=== PATIENT | male | born 1985 | race African-American/Black ===

== ENCOUNTER 2017-02-06 13:58 | Emergency (ER) | payer SELFPAY ==
--- NOTE | 2017-02-06 15:16 | ER Document Report ---
ED ENT - General Chief Complaint: Eye Pain Stated Complaint: EYE/FACE PAIN Time Seen by Provider: 02/06/17 14:58 Mode of Arrival: Ambulatory Information source: Patient Notes: 28-year-old male presents to ED for complaint of pain to the right side of the face states she has swelling to the right side of his face around his eyes and around his mouth. Started last Monday. States he asked her swelling 2 or 3 days ago. No swelling to the face eye or mouth at that time. States the main most of the pain is around the pentecostalism area. Complaint of pain to the top of the head and the temporal and side of his face at this time but no swelling redness or anything else noted. TRAVEL OUTSIDE OF THE [place] IN LAST 30 DAYS: No - HPI Patient complains to provider of: Other - Pain and swelling to the right side of his face and head Onset: Other - Patient states pain started last Monday or Monday but the facial swelling started Monday and the swelling around the eyes started 2-3 days ago. Onset/Duration: Gradual Quality of pain: Achy, Other - Popping and burning Severity: Severe Pain Level: 5 Location of pain: Face, Sinus, Other Associated symptoms: Face swelling - Intermittently, Other - She has had eye swelling intermittently in the mouth numbness and tingling intermittently facial swelling intermittently Similar symptoms previously: Yes - For the last week Recently seen / treated by doctor: No - Related Data Allergies/Adverse Reactions: No Known Allergies Allergy (Verified 02/06/17 14:06) Past Medical History - General Information source: Patient - Social History Smoking Status: Current Every Day Smoker Cigarette use (# per day): Yes - One half pack a day Chew tobacco use (# tins/day): No Smoking Education Provided: Yes - Less than 2 minutes Frequency of alcohol use: Occasional Drug Abuse: Marijuana Occupation: Construction Lives with: Friend Family History: DM. denies: Arthritis, CAD, COPD, CVA, Hyperlipidemia, Hypertension, Malignancy, Thyroid Disfunction Patient has suicidal ideation: No Patient has homicidal ideation: No - Past Medical History Cardiac Medical History: Reports: None Pulmonary Medical History: Reports: Hx Asthma Denies: Hx Tuberculosis EENT Medical History: Reports: None Neurological Medical History: Reports: None Endocrine Medical History: Reports: None Renal/ Medical History: Reports: None Malignancy Medical History: Reports None GI Medical History: Reports: None Musculoskeltal Medical History: Reports None Skin Medical History: Reports None Psychiatric Medical History: Reports: None Traumatic Medical History: Reports: Hx Fractures - Fingers and thumb Infectious Medical History: Reports: None Past Surgical History: Reports: Hx Appendectomy - Immunizations Immunizations up to date: Yes Hx Diphtheria, Pertussis, Tetanus Vaccination: Yes Review of Systems - Review of Systems Constitutional: No symptoms reported EENT: Eye pain - Wound the eye, not in his eye, Sinus pressure, Other - Facial pain Cardiovascular: No symptoms reported Respiratory: No symptoms reported Gastrointestinal: No symptoms reported Genitourinary: No symptoms reported Male Genitourinary: No symptoms reported Musculoskeletal: No symptoms reported Skin: No symptoms reported Hematologic/Lymphatic: No symptoms reported Neurological/Psychological: No symptoms reported Physical Exam - Vital signs Vitals: Temp Pulse Resp BP Pulse Ox 98.1 F 81 16 135/79 H 100 02/06/17 14:06 02/06/17 14:06 02/06/17 14:06 02/06/17 14:06 02/06/17 14:06 Interpretation: Normal - General General appearance: Appears well, Alert - HEENT Head: Normocephalic, Atraumatic Eyes: Normal. No: Periorbital edema Pupils: PERRL Ears: Normal External canal: Normal Tympanic membrane: Normal Sinus: Normal Nasal: Swelling, Clear rhinorrhea Mouth/Lips: Normal Mucous membranes: Normal - Respiratory Respiratory status: No respiratory distress Chest status: Nontender Breath sounds: Normal Chest palpation: Normal - Cardiovascular Rhythm: Regular Heart sounds: Normal auscultation Murmur: No - Abdominal Inspection: Normal Distension: No distension Bowel sounds: Normal Tenderness: Nontender Organomegaly: No organomegaly - Back Back: Normal, Nontender - Extremities General upper extremity: Normal inspection, Nontender, Normal color, Normal ROM , Normal temperature General lower extremity: Normal inspection, Nontender, Normal color, Normal ROM , Normal temperature, Normal weight bearing. No: Zafar's sign - Neurological Neuro grossly intact: Yes Cognition: Normal Orientation: AAOx4 [place] Coma Scale Eye Opening: Spontaneous Eveline Coma Scale Verbal: Oriented [place] Coma Scale Motor: Obeys Commands Eveline Coma Scale Total: 15 Speech: Normal Motor strength normal: LUE, RUE, LLE, RLE Sensory: Normal - Psychological Associated symptoms: Normal affect, Normal mood - Skin Skin Temperature: Warm Skin Moisture: Dry Skin Color: Normal Course - Re-evaluation Re-evalutation: 02/06/17 17:[address] Wharton. Had him come over and assessed the patient. He recommended getting a CAT scan of the head and of the CAT scan was negative he can be discharged home with some medication for discomfort to include anti-inflammatories and Ultram. His CT of the head was negative he was discharged home with a prescription for Ultram and recommended ibuprofen which he stated he would get [id number]. - Vital Signs Vital signs: Temp Pulse Resp BP Pulse Ox 97.8 F 54 L 16 136/85 H 100 02/06/17 17:24 02/06/17 17:24 02/06/17 15:00 02/06/17 17:24 02/06/17 17:24 - Diagnostic Test Radiology reviewed: Image reviewed, Reports reviewed Discharge - Discharge Clinical Impression: Facial pain, Pain, eye, right Headache Qualifiers: Headache type: unspecified Headache chronicity pattern: unspecified pattern Intractability: not intractable Qualified Code(s): R51 - Headache Condition: Stable Disposition: HOME, SELF-CARE Instructions: Family Physicians / Practices Additional Instructions: You should stay you have no pain at this time but you have pain every night when he laid down to go to sleep on the right side of the head and face as well as her right eye. CT of the head was negative. Assessment is consistent with an upper respiratory infection with no signs or symptoms of an infection to the right eye. You have no signs or symptoms of an infection to the right ear. You have been instructed to follow-up with a neurologist for your pain in your head face and eye Anti-Inflammatory Medication You have received a recommendation to use antiinflammatory agent such as ibuprofen. This is an excellent, safe drug for pain control. In addition, it has potent antiinflammatory effects which are beneficial, especially in the treatment of injuries, arthritis, or tendonitis. It's best to take this medicine with food. Persons with ulcer disease or allergy to aspirin should notify their physician of this before taking this drug. Take the medication exactly as prescribed. Don't take additional doses unless instructed to do so by your doctor. If you develop wheezing, shortness of breath, hives, faintness, stomach pain, vomiting, or dark black stools, return for re-evaluation at once. Ultram Ultram is an excellent drug for pain relief. It is not a narcotic, but it works in a similar way. Ultram can take up to two hours for full effect. Although not addicting, Ultram is best avoided in patients with a history of drug abuse. Ultram should not be used with alcohol, sleeping pills, or narcotics. If you're prone to seizures, Ultram can make you more likely to have a seizure. Ultram can be hazardous when combined with MAO-inhibitor antidepressants (such as Nardil or Parnate). Be sure your doctor is aware of all medicines you are taking. Persons with severe liver or kidney disease should increase the time between doses of Ultram. Discuss this with your doctor if you're uncertain. Side effects of Ultram can include dizziness, nausea, constipation, sleepiness, and itching. (These side effects are also seen with narcotic pain medicines.) Please call your doctor if you have other disturbing effects. FOLLOW-UP CARE: If you have been referred to a physician for follow-up care, call the physician s office for an appointment as you were instructed or within the next two days. If you experience worsening or a significant change in your symptoms, notify the physician immediately or return to the Emergency Department at any time for re-evaluation. Prescriptions: Tramadol HCl [Ultram] 50 mg PO BIDP PRN #14 tablet PRN Reason: Forms: Elevated Blood Pressure, Smoking Cessation Education, Return to Work Referrals: ALLY ALBERTO MD [ACTIVE STAFF] - Follow up as needed
--- NOTE | 2017-02-06 16:14 | RADIOLOGY REPORT (SQ) ---
EXAM DESCRIPTION: CT HEAD WITHOUT COMPLETED DATE/TIME: 02/06/2017 3:59 pm REASON FOR STUDY: right facial pain COMPARISON: None. TECHNIQUE: Axial images acquired through the brain without intravenous contrast. Images reviewed wi th bone, brain and subdural windows. Images stored on PACS. All CT scanners at this facility use dose modulation, iterative reconstruction, and/or weight based d osing when appropriate to reduce radiation dose to as low as reasonably achievable (ALARA). [facility]: Dose Right [facility]: CareDose [facility]: Dose Right [facility]: Teradose 4D [facility]: CorNova RADIATION DOSE: 64.61 mGy. LIMITATIONS: None. FINDINGS: VENTRICLES: Normal size and contour. CEREBRUM: No masses. No hemorrhage. No midline shift. Normal joseph/white matter differentiation. N o evidence for acute infarction. CEREBELLUM: No masses. No hemorrhage. No alteration of density. No evidence for acute infarction. EXTRAAXIAL SPACES: No fluid collections. No masses. ORBITS AND GLOBE: No intra- or extraconal masses. Normal contour of globe without masses. CALVARIUM: No fracture. PARANASAL SINUSES: No fluid or mucosal thickening. SOFT TISSUES: No mass or hematoma. OTHER: No other significant finding. IMPRESSION: NORMAL BRAIN CT WITHOUT CONTRAST. TECHNICAL DOCUMENTATION: JOB ID: [id number] Quality ID # [id number]: Final reports with documentation of one or more dose reduction techniques (e.g., Au tomated exposure control, adjustment of the mA and/or kV according to patient size, use of iterative reconstruction technique) 2010 [employer]- All Rights Reserved
[2017-02-06 17:26] VITALS: BP 136/85
== END 2017-02-06 17:28 | disposition home or self-care (01) ==
LOC: ER 13:58
DX: R51 Headache (principal); H57.11 Ocular pain, right eye; R20.0 Anesthesia of skin; R20.2 Paresthesia of skin; R22.0 Localized swelling, mass and lump, head; J34.89 Other specified disorders of nose and nasal sinuses; J45.909 Unspecified asthma, uncomplicated; F17.210 Nicotine dependence, cigarettes, uncomplicated; Z71.6 Tobacco abuse counseling
CPT/HCPCS: 70450; 99283

== ENCOUNTER 2017-10-03 09:04 | Emergency (ER) | payer SELFPAY ==
[2017-10-03] MEDS ORDERED: HYDROCODONE/ACETAMINOPHEN 5-325 MG TABLET PO ONE (10:20)
--- NOTE | 2017-10-03 10:21 | ER Document Report ---
HPI - HPI Patient complains to provider of: Leg pain Onset: Yesterday Onset/Duration: Persistent Quality of pain: Achy Pain Level: 3 Context: Patient states he was playing basketball yesterday and whenever he landed he came down wrong on his right leg. Patient complains of right knee pain and pain from right hip area that radiates down his leg. Patient denies any fall. Patient does state that his knee will occasionally give out on him. Patient complains of increased knee pain with extension of the joint. Associated Symptoms: Other - Right knee, right leg pain. denies: Fever Exacerbated by: Standing, Movement, Walking Relieved by: Denies Similar symptoms previously: No Recently seen / treated by doctor: No - ROS ROS below otherwise negative: Yes Systems Reviewed and Negative: Yes All other systems reviewed and negative - CONSTITUTIONAL Constitutional: DENIES: Fever, Chills - NEURO Neurology: DENIES: Weakness - GASTROINTESTINAL Gastrointestinal: DENIES: Nausea, Patient vomiting - URINARY Urinary: DENIES: Dysuria - REPRODUCTIVE Reproductive: DENIES: : - MUSCULOSKELETAL Musculoskeletal: REPORTS: Extremity pain - DERM Skin Color: Normal Skin Problems: None Past Medical History - General Information source: Patient - Social History Smoking Status: Current Every Day Smoker Smoking Education Provided: Yes Frequency of alcohol use: Occasional Drug Abuse: None Occupation: Construction Family History: DM. denies: Arthritis, CAD, COPD, CVA, Hyperlipidemia, Hypertension, Malignancy, Thyroid Disfunction Patient has suicidal ideation: No Patient has homicidal ideation: No Pulmonary Medical History: Reports: Hx Asthma Denies: Hx Tuberculosis Renal/ Medical History: Denies: Hx Peritoneal Dialysis Traumatic Medical History: Reports: Hx Fractures - Fingers and thumb Past Surgical History: Reports: Hx Appendectomy - Immunizations Immunizations up to date: Yes Hx Diphtheria, Pertussis, Tetanus Vaccination: Yes Vertical Provider Document - CONSTITUTIONAL Agree With Documented VS: Yes Exam Limitations: No Limitations General Appearance: WD/WN, No Apparent Distress - INFECTION CONTROL TRAVEL OUTSIDE OF THE [place] IN LAST 30 DAYS: No - HEENT HEENT: Atraumatic, Normocephalic - NECK Neck: Normal Inspection - RESPIRATORY Respiratory: Breath Sounds Normal, No Respiratory Distress O2 Sat by Pulse Oximetry: 99 - CARDIOVASCULAR Cardiovascular: Regular Rate, Regular Rhythm Pulses: Normal: Dorsalis pedis - BACK Back: Abnormal Inspection - Right SI joint tenderness, no lumbar midline tenderness, step-off or deformity. negative: CVA Tenderness-Right, CVA Tenderness-Left - MUSCULOSKELETAL/EXTREMETIES Musculoskeletal/Extremeties: MAEW, Tender - Right knee joint tenderness, no laxity with varus or valgus maneuvers, patellar tendon intact. Tenderness increases with full extension, No Edema. negative: Eccymosis - NEURO Level of Consciousness: Awake, Alert, Appropriate Motor/Sensory: No Motor Deficit Notes: No saddle anesthesia, negative straight leg test, no footdrop - DERM Integumentary: Warm, Dry, No Rash Course - Re-evaluation Re-evalutation: 10/03/17 11:51 The patient has been informed that they may have pre-hypertension or hypertension based on a blood pressure reading in the emergency department. I recommend that patient call the primary care provider listed on their discharge instructions or a physician of their choice by this week to arrange follow-up for further evaluation of possible pre-hypertension or hypertension. Controlled substance database reviewed Smoking cessation handout provided to patient Patient with no obvious fracture on x-ray, we will plan to immobilize knee and have patient weightbearing as tolerated. The patient presents with low back pain without signs of spinal cord compression, cauda equina syndrome, infection , aneurysm, or other serious etiology. The patient is neurologically intact. Given the extremely risk of these diagnoses further testing and evaluation for these possibilities does not appear to be indicated at this time. Patient has been instructed to return if the symptoms worsen or change in any way. - Vital Signs Vital signs: Temp Pulse Resp BP Pulse Ox 98.4 F 78 20 160/94 H 99 10/03/17 09:16 10/03/17 09:16 10/03/17 09:16 10/03/17 09:16 10/03/17 09:16 - Diagnostic Test Radiology reviewed: Image reviewed, Reports reviewed Procedures - Immobilization Right Knee Pre-Proc Neuro Vasc Exam: Normal Immobilizer type: Bob wrap Performed by: RN Post-Proc Neuro Vasc Exam: Normal Alignment checked and good: Yes Discharge - Discharge Clinical Impression: Elevated blood pressure reading Sprain, knee Qualifiers: Encounter type: initial encounter Involved ligament of knee: unspecified ligament Laterality: right Qualified Code(s): S83.91XA - Sprain of unspecified site of right knee, initial encounter Sciatica Qualifiers: Laterality: right Qualified Code(s): M54.31 - Sciatica, right side Condition: Stable Disposition: HOME, SELF-CARE Instructions: Use of Crutches ([facility]), Ice & Elevation ([facility]), Oral Narcotic Medication ([facility]), Sciatica ([facility]), Sprained Knee ([facility]) Additional Instructions: Return immediately for any new or worsening symptoms Followup with your primary care provider, call tomorrow to make a followup appointment Follow-up with orthopedic doctor, call tomorrow for an appointment Weightbearing as tolerated Prescriptions: Hydrocodone/Acetaminophen [[place] 5-325 Tablet] 1 each PO Q4 PRN #15 tablet PRN Reason: Naproxen [Naprosyn 250 Nmg Tablet] 1 tab PO BID #14 tablet Forms: Elevated Blood Pressure, Smoking Cessation Education, Return to Work Referrals: [facility] [Provider Group] - Follow up as needed [facility] [Provider Group] - Follow up as needed
--- NOTE | 2017-10-03 11:43 | RADIOLOGY REPORT (SQ) ---
EXAM DESCRIPTION: KNEE RIGHT 4 VIEWS COMPLETED DATE/TIME: 10/03/2017 11:04 am REASON FOR STUDY: r knee pain, injured during basketball COMPARISON: None. NUMBER OF VIEWS: Four views. TECHNIQUE: AP, lateral, and both oblique radiographic images acquired of the right knee. LIMITATIONS: None. FINDINGS: MINERALIZATION: Normal. BONES: No acute fracture or dislocation. No worrisome bone lesions. JOINT: No effusion. SOFT TISSUES: No soft tissue swelling. No radio-opaque foreign body. OTHER: No other significant finding. IMPRESSION: NEGATIVE STUDY OF THE RIGHT KNEE. NO RADIOGRAPHIC EVIDENCE OF ACUTE INJURY. TECHNICAL DOCUMENTATION: JOB ID: [id number] SC-69 2010 [employer]- All Rights Reserved
[2017-10-03 12:02] VITALS: BP 155/90
== END 2017-10-03 12:02 | disposition home or self-care (01) ==
LOC: ER 09:04
DX: S83.91XA Sprain of unspecified site of right knee, initial encounter (principal); M54.31 Sciatica, right side; R03.0 Elevated blood-pressure reading, without diagnosis of hypertension; M79.604 Pain in right leg; M25.561 Pain in right knee; M25.551 Pain in right hip; F17.200 Nicotine dependence, unspecified, uncomplicated; X58.XXXA Exposure to other specified factors, initial encounter
CPT/HCPCS: 99283

== ENCOUNTER 2019-02-23 09:43 | Emergency (ER) | payer OTHER ==
[2019-02-23] MEDS ORDERED: DIPH/PERTUSS(ACELL)/TETANUS VAC/PF 0.5 ML SYR (>=10YO) IM ONE (10:15)
[2019-02-23] MEDS ORDERED: CEPHALEXIN 500 MG CAPSULE PO ONE (10:15)
--- NOTE | 2019-02-23 10:19 | ER Document Report ---
HPI - HPI Time Seen by Provider: 02/23/19 10:08 Pain Level: 3 Notes: Patient is a 33-year-old male presenting to the emergency department with laceration to his right index finger just past the DIP. Patient reports he was cutting with a jigsaw yesterday at approximately 2 PM when this occurred. It has been approximately 20 hours since the laceration occurred. Patient has full range of motion, denies any loss of sensation. Patient unsure when last tetanus shot was but he believes it was a long time ago. - REPRODUCTIVE Reproductive: DENIES: : - DERM Skin Color: Normal, [place] Past Medical History - General Information source: Patient - Social History Smoking Status: Current Every Day Smoker Frequency of alcohol use: None Drug Abuse: Marijuana Family History: DM. denies: Arthritis, CAD, COPD, CVA, Hyperlipidemia, Hypertension, Malignancy, Thyroid Disfunction Patient has suicidal ideation: No Patient has homicidal ideation: No Pulmonary Medical History: Reports: Hx Asthma Denies: Hx Tuberculosis Renal/ Medical History: Denies: Hx Peritoneal Dialysis Traumatic Medical History: Reports: Hx Fractures - Fingers and thumb Past Surgical History: Reports: Hx Appendectomy - Immunizations Immunizations up to date: Yes Hx Diphtheria, Pertussis, Tetanus Vaccination: Yes Vertical Provider Document - CONSTITUTIONAL Notes: PHYSICAL EXAMINATION: GENERAL: Well-appearing, well-nourished and in no acute distress. HEAD: Atraumatic, normocephalic. EYES: Pupils equal round extraocular movements intact, conjunctiva are normal. ENT: Nares patent NECK: Normal range of motion LUNGS: No respiratory distress Musculoskeletal: Normal range of motion NEUROLOGICAL: Normal speech, normal gait. PSYCH: Normal mood, normal affect. SKIN: 1 cm linear laceration noted to right index finger just past the DIP on the plantar surface, well approximated, already closed, no active bleeding noted. - INFECTION CONTROL TRAVEL OUTSIDE OF THE [place] IN LAST 30 DAYS: No Course - Re-evaluation Re-evalutation: Wound appears well, well approximated. X-rays negative for any retained foreign body. Patient will be discharged home on antibiotics. - Vital Signs Vital signs: Temp Pulse Resp BP Pulse Ox 98.2 F 84 18 151/96 H 94 02/23/19 09:51 02/23/19 09:51 02/23/19 09:51 02/23/19 09:51 02/23/19 09:51 Discharge - Discharge Clinical Impression: Laceration of right index finger Qualifiers: Encounter type: initial encounter Damage to nail status: without damage Foreign body presence: without foreign body Qualified Code(s): S61.210A - Laceration without foreign body of right index finger without damage to nail, initial encounter Condition: Stable Disposition: HOME, SELF-CARE Additional Instructions: Unfortunately the wound is unable to be sutured since 20 hours has elapsed between the time of the laceration and the time that you came to the emergency department. Luckily it appears to be healing up on its own and is already closed. Please take the antibiotics as prescribed, finish the entire course of antibiotics even if you do not develop any symptoms. The x-ray does not show any retained foreign body in the wound. Your tetanus shot was also updated today. Keep a clean dressing on the area at all times, apply a thin layer of bacitracin or triple antibiotic ointment to the area twice daily and again make sure that you are changing the dressing at least twice daily. Return to the emergency department with any new or worsening symptoms to include fever, redness, swelling, foul-smelling drainage or red streaking from the area. Prescriptions: Cephalexin [Cephalexin 500 MG Tablet] 1 tab PO QID #20 tablet Forms: Return to Work
--- NOTE | 2019-02-23 11:13 | RADIOLOGY REPORT (SQ) ---
EXAM DESCRIPTION: FINGER RIGHT COMPLETED DATE/TIME: 02/23/2019 10:45 am REASON FOR STUDY: right index finger lac, eval for fracture vs FB COMPARISON: None. NUMBER OF VIEWS: Three views. TECHNIQUE: AP, lateral, and oblique images acquired of the right second finger. LIMITATIONS: None. FINDINGS: MINERALIZATION: Normal. BONES: No acute fracture or dislocation. No worrisome bone lesions. SOFT TISSUES: No soft tissue swelling. No foreign body. OTHER: No other significant finding. IMPRESSION: NO RADIOGRAPHIC EVIDENCE OF ACUTE INJURY. COMMENT: SITE OF TRAUMA/COMPLAINT MARKED/STAMP COMPLETED: No TECHNICAL DOCUMENTATION: JOB ID: [id number] [employer]- All Rights Reserved Reading location - IP/workstation name: [email or web address]
[2019-02-23 11:38] VITALS: BP 142/91
== END 2019-02-23 11:38 | disposition home or self-care (01) ==
LOC: ER 09:43
DX: S61.210A Laceration without foreign body of right index finger without damage to nail, initial encounter (principal); F17.200 Nicotine dependence, unspecified, uncomplicated; W29.8XXA Contact with other powered hand tools and household machinery, initial encounter; Y99.0 Civilian activity done for income or pay
CPT/HCPCS: 90471; 90715; 99283

== ENCOUNTER 2019-12-17 08:53 | Emergency (ER) | payer SELFPAY ==
[2019-12-17 09:26] VITALS: BP 143/98
--- NOTE | 2019-12-17 09:30 | RADIOLOGY REPORT (SQ) ---
EXAM DESCRIPTION: HAND RIGHT 3 VIEWS IMAGES COMPLETED DATE/TIME: 12/17/2019 9:15 am REASON FOR STUDY: pain, swelling COMPARISON: None. EXAM PARAMETERS: NUMBER OF VIEWS: Three views. TECHNIQUE: AP, lateral and oblique radiographic images acquired of the right hand. LIMITATIONS: None. FINDINGS: MINERALIZATION: Normal. BONES: No acute fracture or dislocation. There is a small subchondral cysts at the base of the 1st m etacarpal. Some prominent trabeculations in distal 1st metacarpal with subtle lucency consistent wit h benign process possibly septated cyst. JOINTS: No effusions. SOFT TISSUES: No soft tissue swelling. No foreign body. OTHER: No other significant finding. IMPRESSION: No acute findings. TECHNICAL DOCUMENTATION: JOB ID: [id number] 2010 [employer]- All Rights Reserved Reading location - IP/workstation name: [email or web address]
[2019-12-17] MEDS ORDERED: SULFAMETHOXAZOLE/TRIMETHOPRIM 800-160 MG TABLET PO ONE (09:31)
--- NOTE | 2019-12-17 09:34 | ER Document Report ---
HPI - HPI Time Seen by Provider: 12/17/19 09:12 Pain Level: 1 Context: Patient is a 34-year-old male presents emergency department with a chief complaint of right hand pain. He states that he was at a junk yard the other day and feels like he got bit by a spider. Patient works with his hands, as he works in construction. Patient is right-handed. Denies any fever, body aches, or chills. He denies any injury. - CONSTITUTIONAL Constitutional: DENIES: Fever, Chills - EENT EENT: DENIES: Sore Throat, Ear Pain - NEURO Neurology: DENIES: Headache, Weakness - RESPIRATORY Respiratory: DENIES: Trouble Breathing, Coughing - GASTROINTESTINAL Gastrointestinal: DENIES: Abdominal Pain, Nausea - REPRODUCTIVE Reproductive: DENIES: : - MUSCULOSKELETAL Musculoskeletal: REPORTS: Extremity pain - DERM Skin Color: Normal Skin Problems: None - SEE HPI Past Medical History - Social History Smoking Status: Never Smoker Chew tobacco use (# tins/day): No Frequency of alcohol use: None Drug Abuse: Marijuana Family History: DM. denies: Arthritis, CAD, COPD, CVA, Hyperlipidemia, Hypertension, Malignancy, Thyroid Disfunction Patient has suicidal ideation: No Patient has homicidal ideation: No Pulmonary Medical History: Reports: Hx Asthma Denies: Hx Tuberculosis Renal/ Medical History: Denies: Hx Peritoneal Dialysis Traumatic Medical History: Reports: Hx Fractures - Fingers and thumb Past Surgical History: Reports: Hx Appendectomy - Immunizations Immunizations up to date: Yes Hx Diphtheria, Pertussis, Tetanus Vaccination: Yes Vertical Provider Document - CONSTITUTIONAL Agree With Documented VS: Yes Exam Limitations: No Limitations General Appearance: No Apparent Distress - INFECTION CONTROL TRAVEL OUTSIDE OF THE [place] IN LAST 30 DAYS: No - HEENT HEENT: Atraumatic, Normocephalic, PERRLA - NECK Neck: Normal Inspection - RESPIRATORY Respiratory: No Respiratory Distress - CARDIOVASCULAR Cardiovascular: Regular Rate, Regular Rhythm Pulses: Normal: Radial - MUSCULOSKELETAL/EXTREMETIES Musculoskeletal/Extremeties: FROM, Tender - mildly tender to right hand, No Edema. negative: Eccymosis - NEURO Level of Consciousness: Awake, Alert, Appropriate Motor/Sensory: No Motor Deficit, No Sensory Deficit - DERM Integumentary: Warm, Dry, No Rash Course - Re-evaluation Re-evalutation: 04/14/20 09:37 Patient's physical exam did not show in any area of fluctuance. Based off patient's symptoms, will place the patient on Bactrim. I have very low suspicion for necrotizing fasciitis. Follow-up precautions were given. Verbal discharge instructions were given to the patient. They verbalized unders tanding. They are stable for discharge. - Vital Signs Vital signs: Temp Pulse Resp BP Pulse Ox 98.4 F 89 143/98 H 100 12/17/19 08:59 12/17/19 08:59 12/17/19 08:59 12/17/19 08:59 Discharge - Discharge Clinical Impression: Right hand pain Bug bite of face with infection Qualifiers: Encounter type: initial encounter Qualified Code(s): S00.86XA - Insect bite (nonvenomous) of other part of head, initial encounter Condition: Stable Disposition: HOME, SELF-CARE Additional Instructions: You are seen today in the emergency department for right hand pain. You have an infection in the area. Please take your antibiotics as prescribed. If your symptoms are not better in the next 3 to 4 days, return to the emergency department. Prescriptions: Sulfamethoxazole/Trimethoprim [Bactrim Ds Tablet] 1 each PO BID 7 Days #14 tablet Referrals: [facility] [Provider Group] - Follow up as needed [facility] [Provider Group] - Follow up as needed
== END 2019-12-17 09:51 | disposition home or self-care (01) ==
LOC: ER 08:53
DX: S00.86XA Insect bite (nonvenomous) of other part of head, initial encounter (principal); M79.641 Pain in right hand; W57.XXXA Bitten or stung by nonvenomous insect and other nonvenomous arthropods, initial encounter
CPT/HCPCS: 99283

== ENCOUNTER 2020-02-03 09:15 | Emergency (ER) | payer SELFPAY ==
--- NOTE | 2020-02-03 11:18 | RADIOLOGY REPORT (SQ) ---
EXAM DESCRIPTION: L SPINE WHOLE IMAGES COMPLETED DATE/TIME: 02/03/2020 11:06 am REASON FOR STUDY: Lumbar sacral back pain COMPARISON: None. NUMBER OF VIEWS: Five views including obliques. TECHNIQUE: AP, lateral, oblique, and sacral radiographic images acquired of the lumbar spine. LIMITATIONS: None. FINDINGS: MINERALIZATION: Normal. SEGMENTATION: Probable transitional L5 segment. ALIGNMENT: No scoliotic curvature or spondylolisthesis VERTEBRAE: The lumbar vertebral body heights are preserved. There is no fracture. DISCS: The intervertebral disc spaces are preserved. There is no endplate irregularity or osteophyte formation POSTERIOR ELEMENTS: Intact. There is no pars interarticularis defect. HARDWARE: None in the spine. PARASPINAL SOFT TISSUES: Normal. PELVIS: Intact. OTHER: No other finding. IMPRESSION: No acute fracture or malalignment of the lumbar spine. TECHNICAL DOCUMENTATION: JOB ID: [id number] 2010 [employer]- All Rights Reserved Reading location - IP/workstation name: [email or web address]
--- NOTE | 2020-02-03 11:26 | ER Document Report ---
Entered by JUVENTINO SAPP SCRIBE 02/03/20 1048 Acting as scribe for:AC COOK MD ED Neck/Back Problem - General Chief Complaint: Back Pain Stated Complaint: LOW BACK PAIN Time Seen by Provider: 02/03/20 10:38 Mode of Arrival: Ambulatory Information source: Patient Notes: This 34 year old male patient presents to the emergency department today with complaints of low back pain for the last few days. Patient states he woke up with the pain 3 mornings ago. 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 Patient states his pain is exacerbated with bending and squatting and relieved if pressure is put on the area. TRAVEL OUTSIDE OF THE [place] IN LAST 30 DAYS: No - Related Data Allergies/Adverse Reactions: No Known Allergies Allergy (Verified 02/23/19 09:48) Past Medical History - General Information source: Patient - Social History Smoking Status: Current Every Day Smoker Cigarette use (# per day): Yes - 1/3 Frequency of alcohol use: None Drug Abuse: None Occupation: construction Lives with: Family Family History: DM Patient has homicidal ideation: No Pulmonary Medical History: Reports: Hx Asthma Traumatic Medical History: Reports: Hx Fractures - Fingers and thumb Past Surgical History: Reports: Hx Appendectomy - Immunizations Immunizations up to date: Yes Hx Diphtheria, Pertussis, Tetanus Vaccination: Yes Review of Systems - Review of Systems Constitutional: No symptoms reported EENT: No symptoms reported Cardiovascular: No symptoms reported Respiratory: No symptoms reported Gastrointestinal: No symptoms reported Genitourinary: No symptoms reported Male Genitourinary: No symptoms reported Musculoskeletal: See HPI, Back pain Skin: No symptoms reported Hematologic/Lymphatic: No symptoms reported Neurological/Psychological: No symptoms reported -: Yes All other systems reviewed and negative Physical Exam - Vital signs Vitals: Temp Pulse BP Pulse Ox 98.6 F 102 H 156/87 H 97 02/03/20 09:24 02/03/20 09:24 02/03/20 09:24 02/03/20 09:24 - General General appearance: Appears well, Alert In distress: None - HEENT Head: Normocephalic, Atraumatic Eyes: Normal Conjunctiva: Normal - Respiratory Respiratory status: No respiratory distress - Cardiovascular Rhythm: Regular - Abdominal Inspection: Normal Distension: No distension - Back Back: Tender - mild over the spinous processes bilaterally. increased tenderness over the lower paravertebral lumbar muscles and upper paravertebral sacral muscles. - Extremities General upper extremity: Normal inspection, Nontender, Normal ROM General lower extremity: Normal inspection, Nontender, Normal ROM - Neurological Neuro grossly intact: Yes Cognition: Normal Orientation: AAOx4 - Psychological Associated symptoms: Normal affect, Normal mood - Skin Skin Temperature: Warm Skin Moisture: Dry Skin Color: Normal Course - Vital Signs Vital signs: Temp Pulse Resp BP Pulse Ox 98.6 F 102 H 156/87 H 97 02/03/20 09:31 02/03/20 09:24 02/03/20 09:24 02/03/20 09:24 - Diagnostic Test Radiology reviewed: Image reviewed, Reports reviewed - Lumbar sacral spine x- rays did not show acute abnormalities. Discharge - Discharge Clinical Impression: Acute lumbar back pain Qualifiers: Back pain laterality: midline Sciatica presence: without sciatica Qualified Code(s): M54.5 - Low back pain Condition: Stable Disposition: HOME, SELF-CARE Additional Instructions: Low Back Pain Three out of every four people will have an episode of disabling back pain during their lifetime. Most commonly the pain is due to straining of the muscles and ligaments in the low back. Usual treatment includes: (1) Rest on a firm surface. Avoid lying on your stomach. (2) Ice pack the painful area. After a few days, gentle heat may be used intermittently to relax the area, or ice packs can be continued. (3) Medication may be needed -- muscle relaxers and antiinflammatory medicines are commonly used. (4) As the back improves, exercises are prescribed to strengthen the back and abdominal muscles. Your doctor will advise you on the proper care for your back at each stage in your recovery. You may be better in a few days -- or healing may take several weeks. If new symptoms of a "herniated disc" (radiation of pain, numbness, or tingling down the back of the leg or weakness in the leg) occur, you should be re-examined. Further testing may be necessary. High Blood Pressure When your blood pressure was taken today it was elevated. Today's reading was 156/87. Pre-hypertension/Hypertension: The patient has been informed that they may have pre-hypertension or Hypertension based on a blood pressure reading in the emergency department. I recommend that the patient call the primary care provider listed on their discharge instructions or a physician of their choice this week to arrange follow up for further evaluation of possible pre- hypertension or Hypertension. Sometimes, stress or illness causes a temporary elevation of your blood pressure. We suggest that you get your blood pressure measured three more times during the next few days to see if this is more than a temporary abnormality. If your blood pressure is greater than 150/90 on each occasion, you must have treatment. Some simple things you can do to help are: If you have blood pressure medicine but aren't using it regularly, start taking it again. Get some aerobic exercise for at least 20 minutes on a daily basis. (See your doctor before beginning a new exercise program.) Eat a low-fat diet. Lose excess weight. Avoid salty foods and avoid adding salt to any of the foods you eat. Avoid diet pills, decongestants, "energizing" herbs, and other medicines that elevate blood pressure. If left untreated, hypertension greatly enhances your risk for developing heart disease and strokes. Please don't ignore this problem. Take the Flexeril muscle relaxer as prescribed. Take ibuprofen 600 mg every 6-8 hours. Take the pain medication as prescribed if needed. Do gentle stretching exercises but avoid strenuous lifting for a few days. Follow-up with a local chiropractor or sports medicine doctor if not improving. Check your blood pressure every day for a few days and if it continues to remain high you should follow-up with a primary care provider for treatment. RETURN TO THE EMERGENCY ROOM IF ANY NEW OR WORSENING SYMPTOMS. Prescriptions: Cyclobenzaprine HCl [Flexeril 10 mg Tablet] 5 mg PO Q8 PRN #15 tab PRN Reason: Muscle Spasms Oxycodone HCl/Acetaminophen [Percocet 5-325 mg Tablet] 1 tab PO ASDIR PRN #12 tablet PRN Reason: I personally performed the services described in the documentation, reviewed and edited the documentation which was dictated to the scribe in my presence, and it accurately records my words and actions.
[2020-02-03 11:52] VITALS: BP 132/81
== END 2020-02-03 11:50 | disposition home or self-care (01) ==
LOC: ER 09:15
DX: M54.5 Low back pain (principal); F17.210 Nicotine dependence, cigarettes, uncomplicated
CPT/HCPCS: 72110; 99283